=== PATIENT | male | born 1990 | race Caucasian/White ===

== ENCOUNTER 2019-08-08 11:09 | Emergency (ER) | payer OTHER ==
[2019-08-08] MEDS ORDERED: Diphtheria,Pertussis(Acell),Tetanus Vaccine 0.5 ML Syringe IM ONE (11:18)
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
--- NOTE | 2019-08-08 11:46 | CT ---
CT cervical spine Technique: Multiple axial sections were obtained from above the C1 inferiorly to the top of T3. Reconstructed sagittal and coronal images were reviewed. Findings: Scoliosis is noted. Vertebral body heights and disc spaces are maintained. Skull base appears intact. Vertebral bodies and posterior arches are intact. No fracture is identified. No bony central or bony neural foraminal stenosis is seen. No abnormal subluxation is seen. Posterior disc appear maintained. No discrete disc herniation is seen. Visualized lung apices are clear. Impression: Scoliosis. No additional abnormality is appreciated on CT study of the cervical spine. Diagnostic code #2 MTDD
--- NOTE | 2019-08-08 11:47 | CT ---
CT facial bones Technique: Multiple axial sections through the facial bones were obtained. Reconstructed coronal and sagittal images were reviewed. Findings: Mucosal thickening is seen within the maxillary sinuses as well as within portions of the ethmoid and frontal sinuses. Sphenoid sinuses clear. No air-fluid levels are seen within the paranasal sinuses. No facial bone fracture is identified. Nasal septal deviation is noted. Right and left globes are symmetric. No retrobulbar are abnormality is seen. Impression: 1. Mucosal thickening as noted above which is most likely due to chronic sinusitis. 2. Nasal septal deviation which is most likely chronic. 3. No acute facial bone fracture is seen. Diagnostic code #2 MTDD
--- NOTE | 2019-08-08 11:53 | CR ---
Chest: Frontal view of the chest was obtained. Comparison: No prior chest imaging is available. Findings: Heart size and mediastinum are normal. Lungs are clear. No discrete bony abnormality is seen. Impression: Nothing acute is seen on supine abdominal x-ray. Diagnostic code #1 MTDD
[2019-08-08 13:34] LABS: BLOOD UREA NITROGEN,BUN 12 mg/dL (7.0-18.0); CARBON DIOXIDE,CO2 27.1 mmol/L (21.0-32.0); CHLORIDE,CL 106 mmol/L (98-107); GLUCOSE RANDOM 97 mg/dL (74-106); POTASSIUM,K 3.9 mmol/L (3.5-5.1); SODIUM,NA 142 mmol/L (136-148)
== END 2019-08-08 12:45 | disposition home or self-care (01) ==
LOC: MW.ED 11:09
DX: S00.81XA Abrasion of other part of head, initial encounter (principal); S80.212A Abrasion, left knee, initial encounter; S20.212A Contusion of left front wall of thorax, initial encounter; M54.2 Cervicalgia; I10 Essential (primary) hypertension; F90.9 Attention-deficit hyperactivity disorder, unspecified type; F17.210 Nicotine dependence, cigarettes, uncomplicated; Z88.1 Allergy status to other antibiotic agents; Z79.899 Other long term (current) drug therapy; V58.5XXA Driver of pick-up truck or van injured in noncollision transport accident in traffic accident, initial encounter; Y92.410 Unspecified street and highway as the place of occurrence of the external cause
CPT/HCPCS: 36415; 70486; 70486-26; 71045; 71045-26; 72125; 72125-26; 80053; 80305-QW; 81001; 85025; 90471; 90715; 93005; 99284-25; G0480

== ENCOUNTER 2019-11-30 02:32 | Emergency (ER) | payer SELFPAY ==
--- NOTE | 2019-11-30 03:00 | EDM.PDOC ---
ED HPI GENERAL MEDICAL PROBLEM - General Chief Complaint: Respiratory Problem Stated Complaint: COUGHING AND RT SIDE HURTS Time Seen by Provider: 11/30/19 02:47 - History of Present Illness INITIAL COMMENTS - FREE TEXT/NARRATIVE: HISTORY AND PHYSICAL: History of present illness: The patient is a 29-year-old male who presents with spastic persistent dry hacking cough occasionally productive of mucus that he has had for 6 days. The patient says that he has been having right-sided chest pain with the cough but does not have chest wall pain without the cough. He does not feel short of breath and he has not had a fever runny nose but he has had a slight sore throat he has been eating and drinking normally. He says that his children were sick a week and a half ago and then he suddenly got sick afterwards and it is been ongoing for the last 6 days. He has been using [id number] preps without relief and he is here because of concern of the discomfort with the coughing and the persistence of the symptoms. Review of systems: As per history of present illness and below otherwise all systems reviewed and negative. Past medical history: As per history of present illness and as reviewed below otherwise noncontributory. Surgical history: As per history of present illness and as reviewed below otherwise noncontributory. Social history: No reported history of drug or alcohol abuse. Family history: As per history of present illness and as reviewed below otherwise noncontributory. Physical exam: Patient is speaking clearly without breathlessness hoarse or muffled voice and vital signs are noted by me HEENT: Atraumatic, normocephalic, pupils reactive, negative for conjunctival pallor or scleral icterus, mucous membranes moist, throat clear of exudates but there is oropharyngeal erythema and no cervical adenopathy or nuchal rigidity, neck supple, nontender, trachea midline. Lungs: Clear to auscultation, breath sounds equal bilaterally, chest nontender. No wheezing stridor or work of breathing Heart: S1S2, regular, rate and rhythm no overt murmurs Abdomen: Soft, nondistended, nontender. Negative for masses or hepatosplenomegaly. Negative for costovertebral tenderness. Pelvis: Stable nontender. Genitourinary: Deferred. Rectal: Deferred. Extremities: Atraumatic, negative for cords or calf pain. Neurovascular unremarkable. Neuro: Awake, alert, oriented. Cranial nerves II through XII unremarkable. Cerebellum unremarkable. Motor and sensory unremarkable throughout. Exam nonfocal. Diagnostics: Influenza swab rapid strep chest x-ray Therapeutics: Spacer and spacer teaching prednisone Impression: Bronchitis Definitive disposition and diagnosis as appropriate pending reevaluation and review of above. right rib Pain Score (Numeric/FACES): 6 - Related Data Allergies Allergy/AdvReac Type Severity Reaction Status Date / Time cefaclor [From [facility]] Allergy Swelling Verified 11/30/19 02:50 Home Meds: Home Meds Dextroamphetamine/Amphetamine [Adderall] 40 mg PO DAILY 08/08/19 [History] Lisinopril 20 mg PO DAILY 08/08/19 [History] Past Medical History HEENT History: Reports: None Cardiovascular History: Reports: Hypertension Respiratory History: Reports: None Gastrointestinal History: Reports: None Genitourinary History: Reports: None Musculoskeletal History: Reports: None Neurological History: Reports: None Psychiatric History: Reports: ADHD Endocrine/Metabolic History: Reports: None Hematologic History: Reports: None Immunologic History: Reports: None Oncologic (Cancer) History: Reports: None Dermatologic History: Reports: None - Past Surgical History Head Surgeries/Procedures: Reports: None HEENT Surgical History: Reports: None Cardiovascular Surgical History: Reports: None Respiratory Surgical History: Reports: None GI Surgical History: Reports: None Male Surgical History: Reports: None Endocrine Surgical History: Reports: None Neurological Surgical History: Reports: None Musculoskeletal Surgical History: Reports: None Oncologic Surgical History: Reports: None Dermatological Surgical History: Reports: None Social & Family History - Family History Family Medical History: Noncontributory - Caffeine Use Caffeine Use: Reports: None ED ROS GENERAL - Review of Systems Review Of Systems: Comprehensive ROS is negative, except as noted in HPI. ED EXAM, GENERAL - Physical Exam Exam: See Below (See dictation) Course - Vital Signs Last Recorded V/S: Last Vital Signs Temp 35.7 C 11/30/19 02:51 Pulse 96 11/30/19 02:51 Resp 20 11/30/19 02:51 BP 161/90 H 11/30/19 02:51 Pulse Ox 98 11/30/19 02:51 - Orders/Labs/Meds Orders: Active Orders 24 hr Category Date Time Status Communication Order [RC] STAT Care 11/30/19 03:53 Ordered CULTURE STREP A CONFIRMATION [RM] Stat Lab 11/30/19 02:58 Results STREP SCRN A RAPID W CULT CONF [RM] Stat Lab 11/30/19 02:58 Results predniSONE Med 11/30/19 03:52 Once 20 mg PO ONETIME ONE Departure - Departure Time of Disposition: 03:53 Disposition: Home, Self-Care 01 Condition: Good Clinical Impression: Bronchitis - Discharge Information Referrals: Jillian Zapata MD [Primary Care Provider] - Forms: ED Department Discharge Additional Instructions: The following information is given to patients seen in the emergency department who are being discharged to home. This information is to outline your options for follow-up care. We provide all patients seen in our emergency department with a follow-up referral. The need for follow-up, as well as the timing and circumstances, are variable depending upon the specifics of your emergency department visit. If you don't have a primary care physician on staff, we will provide you with a referral. We always advise you to contact your personal physician following an emergency department visit to inform them of the circumstance of the visit and for follow-up with them and/or the need for any referrals to a consulting specialist. The emergency department will also refer you to a specialist when appropriate. This referral assures that you have the opportunity for followup care with a specialist. All of these measure are taken in an effort to provide you with optimal care, which includes your followup. Under all circumstances we always encourage you to contact your private physician who remains a resource for coordinating your care. When calling for followup care, please make the office aware that this follow-up is from your recent emergency room visit. If for any reason you are refused follow-up, please contact the [facility] emergency department at and ask to speak to the emergency department charge nurse. [facility] Primary care- [place] [address] Push hydration and reduce and/or quit smoking. Please follow-up with your provider in the clinic for reevaluation and further care. Fill the prescription you have been given for an inhaler as well as the prednisone and use the inhaler with the spacer as directed taking 1 to 2 puffs every 6 hours for the next 24 hours and then every 6 hours as needed. ReTurn to ER as needed and as discussed Sepsis Event Note - Evaluation Sepsis Screening Result: No Definite Risk - Focused Exam Vital Signs: Vital Signs Temp Pulse Resp BP Pulse Ox 11/30/19 02:51 35.7 C 96 20 161/90 H 98 Date Exam was Performed: 11/30/19 Time Exam was Performed: 03:53 - My Orders Last 24 Hours: My Active Orders 11/30/19 02:58 CULTURE STREP A CONFIRMATION [RM] Stat STREP SCRN A RAPID W CULT CONF [RM] Stat 11/30/19 03:52 predniSONE 20 mg PO ONETIME ONE 11/30/19 03:53 Communication Order [RC] STAT - Assessment/Plan Last 24 Hours: My Active Orders 11/30/19 02:58 CULTURE STREP A CONFIRMATION [RM] Stat STREP SCRN A RAPID W CULT CONF [RM] Stat 11/30/19 03:52 predniSONE 20 mg PO ONETIME ONE 11/30/19 03:53 Communication Order [RC] STAT
--- NOTE | 2019-11-30 03:18 | CR ---
INDICATION: Shortness of breath TECHNIQUE: Chest 2 views. COMPARISON: August 08, 2019 FINDINGS: Cardiovascular and mediastinum: Heart size and vasculature are normal in caliber and appearance. Mediastinum is within normal limits. Lungs and pleural spaces: Lungs are clear. No sign of infiltrate or mass. No sign of pleural effusion. No pneumothorax. Bones and soft tissues: No significant findings. IMPRESSION: No sign of acute disease. Dictated by Rosa Jose MD @ Nov 30 2019 3:17AM Signed by Dr. Rosa Jose @ Nov 30 2019 3:18AM
[2019-11-30] MEDS ORDERED: predniSONE 20 MG Tab PO ONE (03:52)
== END 2019-11-30 04:10 | disposition home or self-care (01) ==
LOC: MW.ED 02:32
DX: J40 Bronchitis, not specified as acute or chronic (principal); I10 Essential (primary) hypertension; F90.9 Attention-deficit hyperactivity disorder, unspecified type; Z88.8 Allergy status to other drugs, medicaments and biological substances; Z79.899 Other long term (current) drug therapy
CPT/HCPCS: 71046; 87081; 87804; 87880; 99285; A9270; 99283

== ENCOUNTER 2020-06-09 23:07 | Emergency (ER) | payer BC, OTHER ==
--- NOTE | 2020-06-10 00:17 | EDM.PDOC ---
ED HPI GENERAL MEDICAL PROBLEM - General Chief Complaint: General Stated Complaint: COVID TESTING Time Seen by Provider: 06/10/20 00:00 Source of Information: Reports: Patient - History of Present Illness INITIAL COMMENTS - FREE TEXT/NARRATIVE: 30M presents with known COVID-19 exposure. No symptoms - Related Data Allergies Allergy/AdvReac Type Severity Reaction Status Date / Time cefaclor [From Ceclor] Allergy Swelling Verified 06/09/20 23:31 Home Meds: Home Meds Dextroamphetamine/Amphetamine [Adderall] 40 mg PO DAILY 08/08/19 [History] Lisinopril 20 mg PO DAILY 08/08/19 [History] Past Medical History HEENT History: Reports: None Cardiovascular History: Reports: Hypertension Respiratory History: Reports: None Gastrointestinal History: Reports: None Genitourinary History: Reports: None Musculoskeletal History: Reports: None Neurological History: Reports: None Psychiatric History: Reports: ADHD Endocrine/Metabolic History: Reports: None Hematologic History: Reports: None Immunologic History: Reports: None Oncologic (Cancer) History: Reports: None Dermatologic History: Reports: None - Infectious Disease History Infectious Disease History: Reports: None - Past Surgical History Head Surgeries/Procedures: Reports: None HEENT Surgical History: Reports: None Cardiovascular Surgical History: Reports: None Respiratory Surgical History: Reports: None GI Surgical History: Reports: None Male Surgical History: Reports: None Endocrine Surgical History: Reports: None Neurological Surgical History: Reports: None Musculoskeletal Surgical History: Reports: None Oncologic Surgical History: Reports: None Dermatological Surgical History: Reports: None Social & Family History - Family History Family Medical History: Noncontributory - Caffeine Use Caffeine Use: Reports: None ED ROS GENERAL - Review of Systems Review Of Systems: Comprehensive ROS is negative, except as noted in HPI. ED EXAM, GENERAL - Physical Exam Exam: See Below Exam Limited By: No Limitations General Appearance: Alert, WD/WN, No Apparent Distress Nose: Normal Inspection Head: Atraumatic, Normocephalic Respiratory/Chest: No Respiratory Distress, No Accessory Muscle Use Extremities: Normal Inspection Neurological: Alert Psychiatric: Normal Affect, Normal Mood Skin Exam: Warm, Dry Course - Vital Signs Last Recorded V/S: Last Vital Signs Temp 98.1 F 06/10/20 00:36 Pulse 86 06/10/20 00:36 Resp 20 06/10/20 00:36 BP 125/83 06/10/20 00:36 Pulse Ox 98 06/10/20 00:36 - Orders/Labs/Meds Labs: Laboratory Tests 06/09/20 Range/Units 23:50 COVID-19 (CRISTIAN) NEGATIVE (NEGATIVE) - Re-Assessments/Exams Free Text/Narrative Re-Assessment/Exam: covid test negative, possibility of false negative discussed Departure - Departure Time of Disposition: 00:17 Disposition: Home, Self-Care 01 Condition: Good Clinical Impression: COVID-19 ruled out - Discharge Information Instructions: COVID-19 Frequently Asked Questions Referrals: Jillian Zapata MD [Primary Care Provider] - Forms: ED Department Discharge Additional Instructions: The following information is given to patients seen in the emergency department who are being discharged to home. This information is to outline your options for follow-up care. We provide all patients seen in our emergency department with a follow-up referral. The need for follow-up, as well as the timing and circumstances, are variable depending upon the specifics of your emergency department visit. If you don't have a primary care physician on staff, we will provide you with a referral. We always advise you to contact your personal physician following an emergency department visit to inform them of the circumstance of the visit and for follow-up with them and/or the need for any referrals to a consulting specialist. The emergency department will also refer you to a specialist when appropriate. This referral assures that you have the opportunity for follow-up care with a specialist. All of these measure are taken in an effort to provide you with optimal care, which includes your follow-up. Under all circumstances we always encourage you to contact your private physician who remains a resource for coordinating your care. When calling for follow-up care, please make the office aware that this follow-up is from your recent emergency room visit. If for any reason you are refused follow-up, please contact the [facility] Emergency Department at and asked to speak to the emergency department charge nurse. Sepsis Event Note (ED) - Evaluation Sepsis Screening Result: No Definite Risk - Focused Exam Vital Signs: Vital Signs Temp Pulse Resp BP Pulse Ox 06/10/20 00:36 98.1 F 86 20 125/83 98 06/09/20 23:23 97.1 F 77 17 133/84 96
== END 2020-06-10 00:36 | disposition home or self-care (01) ==
LOC: MW.ED 23:07
DX: Z20.828 Contact with and (suspected) exposure to other viral communicable diseases (principal); I10 Essential (primary) hypertension; F90.9 Attention-deficit hyperactivity disorder, unspecified type; Z79.899 Other long term (current) drug therapy; Z88.1 Allergy status to other antibiotic agents
CPT/HCPCS: 99282; 99283; U0002

== ENCOUNTER 2022-02-14 18:23 | Emergency (ER) | payer SELFPAY ==
[2022-02-14] MEDS ORDERED: Sodium Chloride 0.9% 1,000 ML IV ONE (18:28)
[2022-02-14] MEDS ORDERED: Famotidine 20 MG/2 ML SDV IVPUSH ONE (18:50)
[2022-02-14] MEDS ORDERED: Ondansetron 4 MG/2 ML SDV IVPUSH ONE (18:50)
[2022-02-14] MEDS ORDERED: Lidocaine 2% Viscous Solution 15 ML UD PO ONE (19:12)
[2022-02-14] MEDS ORDERED: Morphine 4 MG/ML VIAL IVPUSH ONE (19:12)
[2022-02-14] MEDS ORDERED: Benzocaine 20% Topical Spray UD MUCMEM ONE (19:12)
[2022-02-14 19:15] LABS: BLOOD UREA NITROGEN,BUN 33 mg/dL (7.0-18.0); CARBON DIOXIDE,CO2 25.2 mmol/L (21.0-32.0); CHLORIDE,CL 100 mmol/L (98-107); GLUCOSE RANDOM 113 mg/dL (74-106); LIPASE 42 U/L (73-393); POTASSIUM,K 3.2 mmol/L (3.5-5.1); SODIUM,NA 138 mmol/L (136-148)
[2022-02-14] MEDS ORDERED: Iopamidol 755 MG/ML 500 ML Multipack Bottle IVPUSH STA (20:07)
[2022-02-14] MEDS ORDERED: Potassium Chloride 20 MEQ Tab.ER PO ONE (20:31)
[2022-02-14] MEDS ORDERED: Acetaminophen/HYDROcodone 325-5 MG Tab PO ONE (20:47)
== END 2022-02-14 21:18 | disposition home or self-care (01) ==
LOC: MW.ED 18:23
DX: K29.01 Acute gastritis with bleeding (principal); E87.6 Hypokalemia; I10 Essential (primary) hypertension; Z88.8 Allergy status to other drugs, medicaments and biological substances; Z79.899 Other long term (current) drug therapy
CPT/HCPCS: 36415; 74177; 80053; 81003; 83690; 85025; 96374; 96375; 99284; A9270; J2270; J2405; J3490; J7030; Q9967

== ENCOUNTER 2022-02-15 16:23 | Emergency (ER) | payer SELFPAY ==
[2022-02-15] MEDS ORDERED: Sodium Chloride 0.9% 1,000 ML IV ONE (16:25)
[2022-02-15] MEDS ORDERED: Pantoprazole 80 MG in Sodium Chloride 0.9% 10 ML IVPUSH ONE (16:30)
[2022-02-15] MEDS ORDERED: Ciprofloxacin in D5W 400 MG in Premix Bag 1 BAG IV STA ×2 (16:32)
[2022-02-15 17:17] LABS: BLOOD UREA NITROGEN,BUN 42 mg/dL (7.0-18.0); CARBON DIOXIDE,CO2 25.4 mmol/L (21.0-32.0); CHLORIDE,CL 104 mmol/L (98-107); GLUCOSE RANDOM 143 mg/dL (74-106); LIPASE 52 U/L (73-393); POTASSIUM,K 3.8 mmol/L (3.5-5.1); SODIUM,NA 138 mmol/L (136-148)
[2022-02-15] MEDS ORDERED: fentaNYL 50 MCG/ML SDV IVPUSH ONE (17:24)
[2022-02-15] MEDS ORDERED: HYDROmorphone 1 MG/ML Syringe IVPUSH ONE (18:58)
[2022-02-15] MEDS ORDERED: Lidocaine 2% Viscous Solution 100 ML Bottle PO ONE (19:55)
[2022-02-15] MEDS ORDERED: Benzocaine 20% Topical Spray UD MUCMEM ONE (19:55)
[2022-02-15] MEDS ORDERED: Lidocaine 2% Viscous Solution 15 ML UD ONE (20:12)
[2022-02-15] MEDS ORDERED: Lidocaine 2% Viscous Solution 15 ML UD PO ONE (20:16)
== END 2022-02-15 20:25 ==
LOC: MW.ED 16:23
DX: K92.2 Gastrointestinal hemorrhage, unspecified (principal); I10 Essential (primary) hypertension; Z88.8 Allergy status to other drugs, medicaments and biological substances; Z79.899 Other long term (current) drug therapy; Z20.822 Contact with and (suspected) exposure to COVID-19
CPT/HCPCS: 36415; 80053; 83605; 83690; 83735; 84484; 85025; 85610; 85730; 86850; 86900; 86901; 87040; 87635; 93005; 96365; 96375; 99285; A9270; C9113; J0744; J1170; J3010; J3490; J7030; U0002